=== PATIENT | female | born 1990 | race American Indian/Alaskan Native ===

== ENCOUNTER 2019-09-05 17:27 | Emergency (ER) | payer SELFPAY | END 2019-09-05 18:05 | disposition left against medical advice (07) | LOC: ED 17:27 | DX: J45.909 Unspecified asthma, uncomplicated (principal); Z53.21 Procedure and treatment not carried out due to patient leaving prior to being seen by health care provider ==

== ENCOUNTER 2020-07-05 16:17 | Emergency (ER) | payer OTHER ==
[2020-07-05 17:14] LABS: Bilirubin,Urine NEG (Negative); Blood,Urine NEG (Negative); Color,Urine Colorless (Yellow); Protein,Urine <15 mg/dL mg/dL (Negative); Urobilinogen,Urine < 2.0 mg/dL (<2.0)
[2020-07-05 17:29] LABS: Alanine Aminotransferase 17 units/L (7-56); Albumin 5.1 g/dL (3.9-5); Blood Urea Nitrogen 10 mg/dL (7-17); Calcium 10.6 mg/dL (8.4-10.2); Hemolysis Index 23
[2020-07-05 17:37] LABS: Hemoglobin 15.3 gm/dl (10.1-14.3); Red Blood Count 5.34 M/mm3 (3.65-5.03)
[2020-07-05 17:38] LABS: Hematocrit 46.4 % (30.3-42.9); Mean Corpuscular HGB Conc 33 % (30-34); Mean Corpuscular Volume 87 fl (79-97); Mean Platelet Volume 7.7 fl (6-12); Platelet Count 353 K/mm3 (140-440); Red Cell Distribution Width 13.3 % (13.2-15.2)
[2020-07-05 17:39] LABS: BUN/Creatinine Ratio 14; Basophils % (Auto) 0.9 % (0.0-1.8); Eosinophils % (Auto) 1.5 % (0.0-4.3); Monocytes % (Auto) 8.2 % (0.0-7.3)
[2020-07-05 17:40] LABS: Basophils # (Auto) 0.1 K/mm3 (0.0-0.1); Eosinophils # (Auto) 0.1 K/mm3 (0.0-0.4); Lymphocytes # (Auto) 2.9 K/mm3 (1.2-5.4); Monocytes # (Auto) 0.7 K/mm3 (0.0-0.8)
[2020-07-05] MEDS ORDERED: MECLIZINE 25 MG TAB PO ONE (19:43)
--- NOTE | 2020-07-05 20:57 | XRay Report ---
CHEST 1 VIEW 07/05/2020 7:49 PM INDICATION / CLINICAL INFORMATION: Palpitations. COMPARISON: None available. FINDINGS: SUPPORT DEVICES: None. HEART / MEDIASTINUM: No significant abnormality. LUNGS / PLEURA: No significant pulmonary or pleural abnormality. No pneumothorax. ADDITIONAL FINDINGS: No significant additional findings. IMPRESSION: 1. No acute findings. Signer Name: Jose Luis Stephens MD Signed: 07/05/2020 8:52 PM Workstation Name: [id number]
--- NOTE | 2020-07-05 23:18 | Emergency Department Report ---
ED General Adult HPI - General Chief complaint: Nausea/Vomiting/Diarrhea Stated complaint: DIZZY,WEAK,BLURRED VISION Source: patient Mode of arrival: Ambulatory Limitations: No Limitations - History of Present Illness Initial comments: Patient is a nulliparous 29-year-old -[place] female with past medical history of asthma who presents to the ED with complaint of acute onset persistent tachycardia and palpitations after drinking coffee about 12 hours ago. Patient states that she subsequently started feeling lightheaded and dizziness with nausea and blurry vision. Patient states that she then developed chest tightness and decided come to the ED for evaluation. Patient denies syncope, chest pain, vomiting, abdominal pain, seizures, sore throat, fever, chills, cough, dysuria, urinary frequency and urgency or diarrhea. MD Complaint: Dizziness, lightheadedness, heart racing, nausea and blurry vision -: Sudden, hour(s) (12) Location: head, chest Radiation: non-radiation Severity scale (0 -10): 1 Quality: dull Consistency: intermittent Improves with: none Worsens with: none Associated Symptoms: denies other symptoms, loss of appetite, malaise, nausea/vomiting, shortness of breath, other (Lightheadedness and dizziness). denies: confusion, chest pain, cough, diaphoresis, fever/chills, headaches, rash, seizure, syncope, weakness Treatments Prior to Arrival: none - Related Data Previous Rx's Medication Instructions Recorded Last Taken Type Ondansetron [Zofran Odt] 4 mg PO Q6HR PRN #15 tab.rapdis 07/05/20 Unknown Rx hydrOXYzine PAMOATE [Vistaril] 25 mg PO QHS PRN #30 capsule 07/05/20 Unknown Rx Allergies Allergy/AdvReac Type Severity Reaction Status Date / Time No Known Allergies Allergy Unverified 09/05/19 17:29 ED Review of Systems ROS: Stated complaint: DIZZY,WEAK,BLURRED VISION Other details as noted in HPI Constitutional: malaise. denies: chills, fever Eyes: vision change (Blurry vision). denies: eye pain, eye discharge ENT: denies: ear pain, throat pain Respiratory: shortness of breath. denies: cough, SOB with exertion, wheezing Cardiovascular: palpitations. denies: chest pain, dyspnea on exertion, syncope, other Endocrine: no symptoms reported Gastrointestinal: nausea. denies: abdominal pain, vomiting, diarrhea Genitourinary: denies: urgency, dysuria, discharge Musculoskeletal: denies: back pain, joint swelling, arthralgia Skin: denies: rash, lesions Neurological: denies: headache, weakness, paresthesias Psychiatric: denies: anxiety, depression Hematological/Lymphatic: denies: easy bleeding, easy bruising ED Past Medical Hx - Past Medical History Previous Medical History?: Yes Hx Asthma: Yes - Surgical History Past Surgical History?: No - Social History Smoking Status: Never Smoker Substance Use Type: Alcohol - Medications Home Medications: Home Medications Medication Instructions Recorded Confirmed Last Taken Type Ondansetron [Zofran Odt] 4 mg PO Q6HR PRN #15 tab.rapdis 07/05/20 Unknown Rx hydrOXYzine PAMOATE [Vistaril] 25 mg PO QHS PRN #30 capsule 07/05/20 Unknown Rx ED Physical Exam - General Limitations: No Limitations General appearance: alert, in no apparent distress - Head Head exam: Present: atraumatic, normocephalic, normal inspection - Eye Eye exam: Present: normal appearance, PERRL, EOMI Pupils: Present: normal accommodation - ENT ENT exam: Present: normal exam, normal orophraynx, mucous membranes moist, TM's normal bilaterally, normal external ear exam - Neck Neck exam: Present: normal inspection, full ROM - Respiratory Respiratory exam: Present: normal lung sounds bilaterally. Absent: respiratory distress, wheezes, rales, rhonchi, chest wall tenderness, accessory muscle use, decreased breath sounds - Cardiovascular Cardiovascular Exam: Present: regular rate, normal rhythm, normal heart sounds. Absent: systolic murmur, diastolic murmur, rubs, gallop - GI/Abdominal GI/Abdominal exam: Present: soft, normal bowel sounds. Absent: tenderness, guarding, rebound, hyperactive bowel sounds, hypoactive bowel sounds, organomegaly - Extremities Exam Extremities exam: Present: normal inspection, full ROM, normal capillary refill - Back Exam Back exam: Present: normal inspection, full ROM. Absent: tenderness, CVA tenderness (R), CVA tenderness (L), muscle spasm, paraspinal tenderness, vertebral tenderness - Neurological Exam Neurological exam: Present: alert, oriented X3, CN II-XII intact, normal gait, reflexes normal - Psychiatric Psychiatric exam: Present: normal affect, normal mood, anxious - Skin Skin exam: Present: warm, dry, intact, normal color. Absent: rash ED Course Vital Signs 07/05/20 16:49 Temperature 98.2 F Pulse Rate 96 H Respiratory 20 Rate Blood Pressure 151/91 O2 Sat by Pulse 100 Oximetry ED Medical Decision Making - Lab Data Result diagrams: 07/05/20 16:57 07/05/20 16:57 - EKG Data EKG shows normal: sinus rhythm Rate: normal - EKG Data Interpretation: normal EKG 07/05/20 23:22 EKG shows normal sinus rhythm with a ventricular rate of 66 bpm and nonspecific T wave abnormalities in anterior leads - Radiology Data Radiology results: report reviewed, image reviewed Findings [facility] [address] [place] [address] XRay Report Signed Patient: JESSENIA ATWOOD MR#: [id number] : 1990 Acct:[id number] Age/Sex: 29 / F ADM Date: 07/05/20 Loc: ED Attending Dr: Ordering Physician: TANISHA WILSON Date of Service: 07/05/20 Procedure(s): XR chest 1V ap Accession Number(s): [id number] cc: TANISHA WILSON Fluoro Time In Minutes: CHEST 1 VIEW 07/05/2020 7:49 PM INDICATION / CLINICAL INFORMATION: Palpitations. COMPARISON: None available. FINDINGS: SUPPORT DEVICES: None. HEART / MEDIASTINUM: No significant abnormality. LUNGS / PLEURA: No significant pulmonary or pleural abnormality. No pneumothorax. ADDITIONAL FINDINGS: No significant additional findings. IMPRESSION: 1. No acute findings. Signer Name: Jose Luis Stephens MD Signed: 07/05/2020 8:52 PM Workstation Name: [id number] Transcribed By: TL Dictated By: Jose Luis Stephens MD Electronically Authenticated By: Jose Luis Stephens MD Signed Date/Time: 07/05/202051 DD/ 51 TD/TT: - Medical Decision Making This is a nulliparous 29-year-old -[place] female with past medical history of asthma who presents to the ED with complaint of acute onset persistent tachycardia and palpitations after drinking coffee about 12 hours ago. Patient states that she subsequently started feeling lightheaded and dizziness with nausea and blurry vision. Patient states that she then developed chest tightness and decided come to the ED for evaluation. In the ED, patient is alert and oriented x3 and is not in distress but appeared anxious. EKG shows normal sinus rhythm with a ventricular rate of 66 bpm and nonspecific T wave abnormalities in anterior leads. Chest x-ray shows no acute cardiopulmonary abnormalities or pneumonitis. Lab test results were reviewed and are all nonactionable. Patient was treated for dizziness with meclizine in the ED. On reevaluation, patient's symptoms resolved in the ED. Patient was discharged home on medications and advised to avoid drinking coffee or any high energy drinks to prevent palpitations. Patient was advised return to the ED immediately if symptoms get worse, otherwise follow-up with her primary care physician in 5 to 7 days for reevaluation. Critical care attestation.: If time is entered above; I have spent that time in minutes in the direct care of this critically ill patient, excluding procedure time. ED Disposition Clinical Impression: Intermittent palpitations, Anxiety as acute reaction to exceptional stress Disposition: DC-01 TO HOME OR SELFCARE Is pt being admited?: No Does the pt Need Aspirin: No Condition: Stable Instructions: Palpitations, [id number], Generalized Anxiety Disorder, Adult Additional Instructions: All lab test results were reviewed and are all nonactionable. Chest x-ray shows no acute cardiopulmonary abnormalities or pneumonitis. Therefore take medications with food, drink plenty of fluids and follow-up with your primary care physician in 3 to 5 days for reevaluation. Avoid consumption of highly caffeinated drinks or energy drinks to prevent palpitations. Return to the ED immediately if symptoms get worse. Prescriptions: hydrOXYzine PAMOATE [Vistaril] 25 mg PO QHS PRN #30 capsule PRN Reason: Anxiety Ondansetron [Zofran Odt] 4 mg PO Q6HR PRN #15 tab.rapdis PRN Reason: Nausea Referrals: [facility] [Provider Group] - 3-5 Days Time of Disposition: 23:23 Print Language: FAROESE
[2020-07-05 23:48] VITALS: BP 128/79
== END 2020-07-05 23:35 | disposition home or self-care (01) ==
LOC: ED 16:17
DX: F43.0 Acute stress reaction (principal); F41.9 Anxiety disorder, unspecified; J45.909 Unspecified asthma, uncomplicated; R00.2 Palpitations
CPT/HCPCS: 36415; 71045; 80053; 81001; 82962; 84436; 84443; 84484; 84703; 85025; 93005